=== PATIENT | female | born 1935 | race Caucasian/White ===

== ENCOUNTER 2016-12-27 12:02 | Inpatient (IN) ==
[2016-12-27 13:31] LABS: Basophils # (Auto) 0.1 K/mcL (0.0-0.3); Basophils % (Auto) 0.4 % (0.0-2.0); Eosinophils # (Auto) 0.3 K/mcL (0.0-0.7); Eosinophils % (Auto) 1.7 % (0.0-7.0); Granulocytes % (Auto) 75.9 % (38.0-78.0); Lymphocytes # (Auto) 2.3 K/mcL (1.5-4.8); Lymphocytes % (Auto) 12.6 % (15.5-49.0); Mean Cell Volume 103.5 fL (80.0-100.0); Mean Corpuscular HGB Conc 33.7 g/dL (31.0-36.0); Mean Corpuscular Hemoglobin 34.8 pg (26.0-34.0); Monocytes # (Auto) 1.7 K/mcL (0.1-0.9); Monocytes % (Auto) 9.4 % (1.0-12.0); Platelet Count 433 K/mcL (140-440); Red Cell Distribution Width 13.4 % (11.5-14.5)
--- NOTE | 2016-12-27 13:35 | XRay Report ---
CLINICAL INFORMATION: Cough and fatigue COMPARISON: 01/10/2013 FINDINGS: The heart is minimally enlarged, but unchanged. Mediastinum and pulmonary vessels are normal. Moderate sized infiltrate has developed in the posterior medial right lower lobe. Small right pleural effusion. IMPRESSION: Moderate sized bilateral infiltrative small right pleural effusion - likely pneumonia Interpreted and Authenticated by: Simba Graham 12/27/16
[2016-12-27 14:08] LABS: ALT/SGPT 15 U/l (0-40); Albumin 3.7 gm/dL (3.2-5.2); Alkaline Phosphatase 68 U/L (39-117); Blood Urea Nitrogen 14 mg/dl (8-23)
[2016-12-27] MEDS ORDERED: cefTRIAXone 1 GM in DEXTROSE 5% IN WATER 50 ML IV ONE (14:08)
[2016-12-27] MEDS ORDERED: VANCOMYCIN 1,000 MG in 0.9 % SODIUM CHLORIDE 250 ML IV ONE (14:08)
--- NOTE | 2016-12-27 15:22 | Emergency Department Note ---
Dizziness HPI - General Chief Complaint: Arrhythmia/Palpitations Stated Complaint: cold symptoms Time Seen by Provider: 12/27/16 12:12 Source: patient Mode of arrival: ambulatory Limitations: no limitations - History of Present Illness HPI Narrative: 81-year-old female presents with persistent cough for 2 weeks. She was seen here 8 days ago and put on a Z-Keyon for bronchitis. States she did not get any better so after about 5 days she saw her primary care provider who put her on another Z-Keyon. She states states she took the first dose about 500 mg and then did not take anymore because she started having palpitations. Her states that he's retired provider and red on the instructions that that medication can have that side effect and so they stopped it. She continues to have weakness and fatigue. Her states "she is just not". She denies chest pain but does get short of breath especially with exertion. She has a lot of fatigue and spend a lot of time in bed. Feels weak and much more tired than normal. Has thick green sputum with a productive cough. No sore throat. Positive body aches but unknown fever. No chills. No nausea vomiting or diarrhea. Patient is very tearful. She states she is upset but will not say why. She denies being scared. She states she is here to get an antibiotic and go home but her states something else is going on and she needs further evaluation. - Related Data Home Medications Medication Instructions Recorded Confirmed Albuterol Sulfate [Proair Hfa] 8.5 gm IH BID 12/19/16 12/27/16 Fexofenadine [Sally] 180 mg PO DAILY 12/19/16 12/27/16 Lisinopril [Zestril] 20 mg PO DAILY 12/19/16 12/27/16 Previous Rx's Medication Instructions Recorded beclomethasone dipropionate 80 80 mcg INHALATION BID #8.7 g 07/29/15 mcg/actuation aerosol inhaler pneumococcal 13-siddharth conj 0.5 ml IM ONCE #0.5 ml 08/25/15 vaccine-dip crm (PF) 0.5 mL IM syringe Azithromycin 250 mg PO DAILY #6 tablet 12/19/16 Benzonatate [Tessalon Perle] 100 mg PO TID PRN #20 capsule 12/19/16 Allergies Allergy/AdvReac Type Severity Reaction Status Date / Time No Known Drug Allergies Allergy Verified 12/27/16 12:07 Review of Systems All systems ED: reviewed and negative except as stated. Past Medical History - Past Medical History Medical history: Reports: asthma, hypertension Surgical history ED: Reports: non-contributory Psychiatric history: Reports: no psych history [employer] history: Reports: non-contributory - Social History smoking status: Never smoker Alcohol use: Reports: None Drug use: Reports: none Physical Exam - General Limitations: no limitations General appearance: alert, in no apparent distress - Head Head exam: atraumatic, normocephalic, normal inspection - Eye Eye exam: Present: normal appearance, PERRL. Absent: conjunctival injection, nystagmus, periorbital swelling, periorbital tenderness - ENT ENT exam: normal exam, normal oropharynx, mucous membranes moist, TM's normal bilaterally, normal external ear exam - Neck Neck exam: Present: normal inspection, full ROM, trachea midline. Absent: tenderness, lymphadenopathy - Chest Chest inspection: Present: normal inspection, symmetric chest wall rise - Respiratory Respiratory exam: Present: other (Lungs sounds diminished in bases bilaterally and right with crackles.). Absent: respiratory distress, wheezes, stridor, accessory muscle use - Cardiovascular Cardiovascular exam: Present: regular rate, normal heart sounds - Abdominal Exam Abdominal exam: Present: soft, normal bowel sounds. Absent: distention, tenderness, guarding - Extremities Exam Extremities exam: Present: normal inspection, normal capillary refill. Absent: pedal edema - Neurological Exam Neurological exam: Present: alert, other (Forgetful at times) - Psychiatric Psychiatric exam: Present: other (Very tearful) - Skin Skin exam: Present: warm, dry, intact, normal color. Absent: rash, cyanosis, diaphoresis, erythema Course Course Narrative: Vital signs have been stable throughout her visit here. feels like she is too weak to go home. She also has bilateral infiltrate on x-ray as well as a right pleural effusion. Also has urinary tract infection. Patient is in need of IV antibiotics. Did speak with Dr. Hernandez- hospitalist who agrees to see the patient and assume care Vital Signs Temperature 96.6 F L 12/27/16 12:02 Pulse Rate 82 12/27/16 12:02 Respiratory Rate 16 12/27/16 12:02 Blood Pressure 150/79 12/27/16 12:02 Pulse Oximetry (%) 94 12/27/16 12:02 Temperature 96.6 F L 12/27/16 12:02 Pulse Rate 66 12/27/16 14:19 Respiratory Rate 20 12/27/16 14:19 Blood Pressure 166/66 12/27/16 14:19 Pulse Oximetry (%) 91 12/27/16 14:19 Dizziness - Lab Data Lab results reviewed: Yes I reviewed the patient's lab results. Result diagrams: 12/27/16 12:45 12/27/16 12:45 Lab Results 12/27/16 12/27/16 12/27/16 Range/Units 12:45 12:45 12:45 WBC 18.4 H (4.5-11.0) K/mcL RBC 3.60 L (4.00-5.20) M/mcL Hgb 12.5 (12.0-15.0) g/dL Hct 37.3 (36.0-48.0) % MCV 103.5 H (80.0-100.0) fL MCH 34.8 H (26.0-34.0) pg MCHC 33.7 (31.0-36.0) g/dL RDW 13.4 (11.5-14.5) % Plt Count 433 (140-440) K/mcL MPV 8.1 (7.4-10.4) fL Gran % 75.9 (38.0-78.0) % Lymph % (Auto) 12.6 L (15.5-49.0) % Hart % (Auto) 9.4 (1.0-12.0) % Eos % (Auto) 1.7 (0.0-7.0) % Baso % (Auto) 0.4 (0.0-2.0) % Gran # 14.0 H (1.8-8.0) K/mcL Lymph # 2.3 (1.5-4.8) K/mcL Hart # 1.7 H (0.1-0.9) K/mcL Eos # 0.3 (0.0-0.7) K/mcL Baso # 0.1 (0.0-0.3) K/mcL VBG Lactic Acid (0.5-2.2) mmol/L Sodium 131 L (133-145) mmol/L Potassium 3.5 (3.3-5.1) mmol/L Chloride 92 L (96-108) mmol/L Carbon Dioxide 23 (22-30) mmol/L Anion Gap 16.0 (8-16) BUN 14 (8-23) mg/dl Creatinine 0.8 (0.6-1.1) mg/dl GFR Calculation 69 Glucose 123 H (70-105) mg/dL Calcium 9.0 (8.6-10.4) mg/dl Total Bilirubin 0.7 (0.0-1.0) mg/dL AST 14 (0-37) U/l ALT 15 (0-40) U/l Alkaline Phosphatase 68 (39-117) U/L Troponin T < 0.01 (0-0.03) ng/ml Total Protein 7.3 (5.9-8.4) gm/dL Albumin 3.7 (3.2-5.2) gm/dL Globulin 3.6 (2.2-3.7) gm/dL Albumin/Globulin Ratio 1.0 (1.0-2.3) 12/27/16 Range/Units 14:23 WBC (4.5-11.0) K/mcL RBC (4.00-5.20) M/mcL Hgb (12.0-15.0) g/dL Hct (36.0-48.0) % MCV (80.0-100.0) fL MCH (26.0-34.0) pg MCHC (31.0-36.0) g/dL RDW (11.5-14.5) % Plt Count (140-440) K/mcL MPV (7.4-10.4) fL Gran % (38.0-78.0) % Lymph % (Auto) (15.5-49.0) % Hart % (Auto) (1.0-12.0) % Eos % (Auto) (0.0-7.0) % Baso % (Auto) (0.0-2.0) % Gran # (1.8-8.0) K/mcL Lymph # (1.5-4.8) K/mcL Hart # (0.1-0.9) K/mcL Eos # (0.0-0.7) K/mcL Baso # (0.0-0.3) K/mcL VBG Lactic Acid 1.0 (0.5-2.2) mmol/L Sodium (133-145) mmol/L Potassium (3.3-5.1) mmol/L Chloride (96-108) mmol/L Carbon Dioxide (22-30) mmol/L Anion Gap (8-16) BUN (8-23) mg/dl Creatinine (0.6-1.1) mg/dl GFR Calculation Glucose (70-105) mg/dL Calcium (8.6-10.4) mg/dl Total Bilirubin (0.0-1.0) mg/dL AST (0-37) U/l ALT (0-40) U/l Alkaline Phosphatase (39-117) U/L Troponin T (0-0.03) ng/ml Total Protein (5.9-8.4) gm/dL Albumin (3.2-5.2) gm/dL Globulin (2.2-3.7) gm/dL Albumin/Globulin Ratio (1.0-2.3) - Radiology Data Radiology results reviewed: Yes I reviewed the patient's radiology results. - EKG Data EKG attestation: Yes I reviewed and interpreted this EKG. EKG shows normal: sinus rhythm Rate: normal Rhythm: NSR When compared to previous EKG there are: no significant changes Interpretation: no acute changes Disposition Clinical Impression: Pneumonia, Urinary tract infection Disposition: Still a Patient Condition: Good
[2016-12-27] MEDS ORDERED: POTASSIUM CHLORIDE 20 MEQ PACKET PO PRN (15:35)
[2016-12-27] MEDS ORDERED: MAGNESIUM SULFATE 2 GM/50 ML BAG IV PRN (15:35)
[2016-12-27] MEDS ORDERED: BENZONATATE 100 MG CAPSULE PO PRN (15:35)
[2016-12-27] MEDS ORDERED: ACETAMINOPHEN 1,000 MG/100 ML BOTTLE IV PRN (15:35)
[2016-12-27] MEDS ORDERED: ONDANSETRON 4 MG/2 ML VIAL IV PRN (15:35)
[2016-12-27] MEDS ORDERED: LEVOFLOXACIN 750 MG/150 ML BAG IV SCH (16:00)
[2016-12-27] MEDS: 0.9 % SODIUM CHLORIDE 1,000 ML IV SCH (16:20)
[2016-12-27 16:35] LABS: Strep Pneumoniae Antigen - UR NEGATIVE (NEGATIVE)
[2016-12-27 16:37] LABS: Appearance,Urine CLEAR; Bacteria,Urine 0 /hpf (0); Bilirubin,Urine NEG (NEG); Color,Urine YELLOW; Glucose,Urine (UA) NEGATIVE (NEG); Leukocyte Esterase,Urine 75 /uL (NEG); Mucus,Urine FEW /hpf (0); Nitrate,Urine NEG (NEG); Protein,Urine NEG (NEG); Specific Gravity,Urine 1.018 (1.000-1.035); Urine Blood NEG mg/dL (<0.03); Urine RBC 1 /hpf (0-1); Urine Squamous Epithelial Cell 1 /hpf (0-4); Urine Transitional Epi Cells < 1 /hpf (0-2); Urine WBC 8 /hpf (0-4)
[2016-12-27] MEDS: PIPERACILLIN SODIUM/TAZOBACTAM 3.375 GM in DEXTROSE 5% IN WATER 50 ML IV SCH (16:50)
--- NOTE | 2016-12-27 16:52 | History and Physical Report ---
DATE OF ADMISSION: 12/27/2016 REASON FOR ADMISSION: Worsening shortness of breath, fever, cough, weakness. HISTORY OF CHIEF COMPLAINT: The patient is an 81-year-old who comes to [facility] Emergency Room with her with above symptoms that have progressed over the last couple of weeks. In the process, the patient has been seen by primary care physician and was started on Z-Keyon. However, patient had only minimal improvement and subsequently started experiencing palpitation. Over the ensuing couple of days, the patient has gotten increasingly short of breath and significant effort intolerance. She endorses to copious amount of yellow-green productive sputum. She denies recent sick contacts. She is up-to-date on pneumonia and flu vaccine. She endorses to low grade fever, but denies shaking chills, drenching sweats, headache, photophobia, skin rash, joint pain. She endorses significant fatigue, lethargy, weakness and loss of appetite. She endorses losing 10 pounds over the last few weeks. Initial workup in the ER was significant for bibasilar infiltrate along with right-sided effusion. The patient was started on antibiotic coverage. Hospitalist Service was consulted. At the time of examination, the patient is alert and oriented. She is able to provide answers to most of the questions and able to talk in full sentences and endorse to above history. REVIEW OF SYSTEMS: Ten-point review of system was performed and is negative except the ones discussed above. PAST MEDICAL HISTORY: 1. History of hypertension. 2. Seasonal allergy disorder. 3. Reactive airway disease. 4. 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 CURRENT MEDICATIONS: 1. Albuterol inhaled b.i.d. 2. Fexofenadine 180 mg daily. 3. Lisinopril 20 mg daily. ALLERGIES: None significant. SOCIAL HISTORY: The patient lives in [place] along with her . No history of smoking, very occasional alcohol use. She is retired. She sees Beverley Stauffer NP, primary care physician at [facility]. FAMILY HISTORY: Significant for father who at age 80 of CVA. PHYSICAL EXAMINATION: GENERAL: The patient is in minimal discomfort, nonlabored breathing. BMI 28.3, height 5 feet 5 inches. VITAL SIGNS: Blood pressure 104/81, respiration rate 20, temperature 97.6, pulse 75, sats 92% on room air. HEENT: Pupils symmetric. Oral cavity is dry. No ear or nose discharge. Head is normocephalic and atraumatic. NECK: No lymphadenopathy. HEART: S1, S2, regular rhythm. No murmur appreciated. CHEST: Clear to auscultation bilaterally. ABDOMEN: Soft and nontender. LOWER EXTREMITIES: No cyanosis or clubbing. No joint swelling. SKIN: No suspicious lesions. PSYCH: Minimal anxiety, but no agitation, hallucination or delusion. NEURO: Nonfocal. LABS AND IMAGING: White count 18,000, hemoglobin 12.5, neutrophils 76%. ESR pending. Lactic acid 1.0. Sodium 131, potassium 3.5, creatinine 0.8, BUN 14. Troponin negative. Procalcitonin pending. X-ray chest: Bibasilar infiltrates suggestive of pneumonia along with right pleural effusion. EKG: Sinus rhythm. ASSESSMENT AND PLAN: An 81-year-old admitted with severe sepsis, bilateral pneumonia. 1. Sepsis per SOFA criteria. Continue broad antibiotic coverage, management per guidelines. 2. Dyspnea secondary to bibasilar pneumonia. Continue supplemental oxygen. 3. Bibasilar pneumonia. Continue antibiotic coverage. Rule out underlying CHF with echocardiogram. 4. Pleural effusion. If persistent leukocytosis, perform thoracentesis to rule out empyema. 6. Other prior medical issues, including: a. History of hypertension. Continue lisinopril. b. Reactive airway disease. Continue albuterol/beclomethasone. PLAN FOR TODAY: 1. Admit as inpatient. 2. Antibiotic coverage. 3. Thoracentesis if persistent leukocytosis. 4. Echocardiogram. 5. Preexisting medical condition management as above. AA:analisa Job ID: [id number] Doc ID: [id number] Eugenio Stauffer NP
[2016-12-27] MEDS: ACETAMINOPHEN 325 MG TABLET PO PRN (20:20)
[2016-12-27] MEDS: DOCUSATE SODIUM 100 MG CAPSULE PO SCH (20:21)
[2016-12-27] MEDS: HEPARIN 5,000 UNIT/ML VIAL SQ SCH (20:21)
[2016-12-27] MEDS: BECLOMETHASONE DIPROPIONATE 80MCG INHALER INH SCH (20:21)
[2016-12-27] MEDS: ALBUTEROL SULFATE 1 PUFF INHALER IH SCH ×2 (20:21→23:26)
[2016-12-27] MEDS ORDERED: traZODone HCL 50 MG TABLET PO PRN (21:00)
[2016-12-27] MEDS ORDERED: SENNOSIDES/DOCUSATE SODIUM 1 TAB TABLET PO SCH (21:00)
[2016-12-27] MEDS: 0.9 % SODIUM CHLORIDE 10 ML SYRINGE IV SCH (22:00)
[2016-12-28 05:39] LABS: Mean Cell Volume 105.4 fL (80.0-100.0); Mean Corpuscular HGB Conc 34.6 g/dL (31.0-36.0); Mean Corpuscular Hemoglobin 36.5 pg (26.0-34.0); Platelet Count 381 K/mcL (140-440); RBC 3.14 M/mcL (4.00-5.20); Red Cell Distribution Width 13.2 % (11.5-14.5)
[2016-12-28] MEDS: PIPERACILLIN SODIUM/TAZOBACTAM 3.375 GM in DEXTROSE 5% IN WATER 50 ML IV SCH ×4 (06:02→18:15)
[2016-12-28] MEDS: 0.9 % SODIUM CHLORIDE 10 ML SYRINGE IV SCH ×2 (06:03→20:36)
[2016-12-28 06:27] LABS: ALT/SGPT 17 U/l (0-40); Albumin 3.1 gm/dL (3.2-5.2); Albumin/Globulin Ratio 0.9 (1.0-2.3); Alkaline Phosphatase 71 U/L (39-117); Bilirubin,Direct < 0.2 mg/dL (0.0-0.3); Blood Urea Nitrogen 8 mg/dl (8-23); Gamma Glutamyl Transpeptidase 12 U/L (5-36); Magnesium 2.1 mg/dL (1.6-2.5); Uric Acid 2.5 mg/dL (2.5-8.0)
[2016-12-28 06:49] LABS: Basophils % (Manual) 1 % (0-2); Eosinophils % (Manual) 1 % (0-7); Lymphocytes % 19 % (15-49); Macrocytosis 2+ (NONE SEEN); Metamyelocytes % 1 % (0-0); Monocytes % (Manual) 7 % (1-9); Platelet Estimate NORMAL (NORMAL); RBC Morphology ABNORM (NORMAL); Segmented Neutrophils % 70 % (38-78)
[2016-12-28] MEDS ORDERED: PANTOPRAZOLE 40 MG TABLET PO SCH (07:30)
[2016-12-28] MEDS: DOCUSATE SODIUM 100 MG CAPSULE PO SCH ×3 (08:50→21:00)
[2016-12-28] MEDS: HEPARIN 5,000 UNIT/ML VIAL SQ SCH ×3 (08:50→20:59)
[2016-12-28] MEDS: BECLOMETHASONE DIPROPIONATE 80MCG INHALER INH SCH ×2 (08:50→20:36)
[2016-12-28] MEDS: ALBUTEROL SULFATE 1 PUFF INHALER IH SCH ×2 (08:51→20:35)
[2016-12-28] MEDS ORDERED: LISINOPRIL 20 MG TABLET PO SCH (09:00)
[2016-12-28] MEDS ORDERED: FEXOFENADINE 180 MG TABLET PO SCH (09:00)
[2016-12-28] MEDS ORDERED: amLODIPine 10 MG TABLET PO SCH (09:00)
--- NOTE | 2016-12-28 09:22 | Echocardiogram Report ---
ECHOCARDIOGRAM: 2-D and M-mode echocardiography with cardiac Doppler and color flow imaging were performed with a [employer]. Indication is dyspnea/possible heart failure. A diagnostic M-mode tracing of the LV could not be obtained. The RA appeared mildly enlarged and the RV appeared borderline enlarged. The LA and LV cavity size appeared normal as did LV wall thickness and systolic performance. Estimated ejection fraction is 65%. Aortic root diameter appeared normal. The aortic valve appeared trileaflet and normal. There was no evidence for aortic stenosis or aortic regurgitation by Doppler interrogation. The mitral leaflets displayed light focal calcification. Mitral annular calcification was also present. Valve motion appeared slightly stiff. Doppler interrogation of the LV inflow disclosed mildly prolonged early diastolic deceleration time and a mild ''a'' wave dominance consistent with age. No more than trivial mitral regurgitation was noted. Pulmonary venous interrogation disclosed normal ''s'' wave dominance. The pulmonic valve was not well visualized. Pulmonary artery acceleration time was difficult to measure. There was no evidence for pulmonic stenosis or pulmonic regurgitation. Tricuspid regurgitation, probably moderate (2+), was demonstrated. No intracardiac shunting was appreciated. There was no evidence for pericardial effusion. The IVC was of normal diameter and showed normal respiratory variation. Calculated estimate of PA systolic pressure is minimally elevated at 35 mmHg, probably normal at age 81. Sinus rhythm, rate 76, was present. CONCLUSION:Light focal calcification, mitral annulus and leaflets. Borderline to mild right heart enlargement. (See accompanying M-mode and Doppler reports for quantitation.) ECHOCARDIOGRAPHY M-MODE CALCULATIONS: HT: 65'' WT: 170 BSA: 1.85 m2 NORMALS AORTA: AORTIC ROOT 3.2 2.0-3.7 cm LEFT ATRIUM 3.5 1.9-4.0 cm MITRAL VALVE: EXCURSION 2.1 1.9-2.7 cm EPSS 0.4 <0.5 cm LT VENTRICLE: LVID (ED) -- 3.5-5.7 cm LVID (ES) -- SEPTAL THICKNESS -- 0.6-1.1 cm SEPTAL EXCURSION -- 0.3-0.8 cm LVPW THICKNESS -- 0.6-1.1 cm LVPW EXCURSION -- 0.9-1.4 cm MINOR AXIS FS -- 25%-40% RT VENTRICLE: RVID (ED) -- 0.9-2.6 cm(up to 3cm if LLD) QUALITATIVE DOPPLER FLOW STUDIES MITRAL VALVE MR, probably trivial AORTIC VALVE -- TRICUSPID VALVE TR, probably moderate (2+) PULMONIC VALVE AK, probably trivial QUANTITATIVE DOPPLER FLOW STUDIES SAMPLE SITES VELOCITIES PEAK PRESSURE VALVE AREA and/or VALVE WINDOW (PEAK,M/SEC) DROP (GRADIENT) PRESSURE HALF-TIME MV (Diastole) 1.0 1.1 -- -- MV (Systole) 3.5 -- -- AO (Diastole) -- -- -- AO (Systole) 1.5 -- -- TV (Systole) 2.6 -- -- PV (Systole) 0.7 -- -- PV (Diastole) -- LWG:j carlos Job ID: [id number] Doc ID: [id number] Huan Heart MD
[2016-12-28] MEDS: ACETAMINOPHEN 325 MG TABLET PO PRN (13:32)
[2016-12-28] MEDS: 0.9 % SODIUM CHLORIDE 1,000 ML IV SCH ×2 (14:59→18:13)
--- NOTE | 2016-12-28 16:25 | Internal Med Progress Note ---
Medical - PN: Subj Patient information: Note initiated : 12/28/16 at 4:21 pm Service Date, if different from initiated Date: [] Patient: Krystyna Bolaños 81 y/o F admitted on 12/27/16 for Cold Symptoms/ Severe Sepsis, Bilateral Pneumonia. Chief Complaint: [] Interval history: 12/27- 81-year-old female admitted with failed outpatient treatment for pneumonia with increasing dyspnea and effort intolerance. Bibasal infiltrates on chest imaging along with pleural effusion. Started on broad antibiotic coverage. Echocardiogram ordered. Admitted in telemetry. White count 18.4. Continue hemodynamic monitoring. hypoxic on 2 L oxygen 12/28- no overnight events. Patient clinically improving and doing well. White count down to 13.4. No telemetry events. Transfer to medical floor. Continue antibiotic coverage. Restart on home medications. On 1- 2 L oxygen. echocardiogram normal ejection fraction with no significant findings. - Constitutional Vitals: Vital Signs Temp Pulse Resp BP Pulse Ox 97.7 F 64 20 125/77 92 12/28/16 11:50 12/28/16 03:52 12/28/16 11:50 12/28/16 11:50 12/28/16 11:50 Period Temp Pulse Resp BP Sys/Jama Pulse Ox Last 24 Hr 97.6 F-98.8 F 56-64 16-20 125-140/64-77 92-96 Intake and Output 12/28/16 12/28/16 12/28/16 05:59 13:59 21:59 Intake Total 650 / 650 50 / 50 1167 / 1167 Output Total 1550 / 1550 Balance -900 / -900 / 50 1167 / 1167 Weight 168 lb Patient Weight 12/29/16 05:59 Weight 168 lb Intake & Output: Intake & Output 12/28/16 12/28/16 12/28/16 05:59 13:59 21:59 Intake Total 650 / 650 50 / 50 1167 / 1167 Output Total 1550 / 1550 Balance -900 / -900 50 / 50 1167 / 1167 Weight 168 lb Intake: IV 50 / 50 50 / 50 967 / 967 Sodium Chloride 0.9% 1, 967 / 967 000 ml @ 50 mls/hr IV . Q20H [facility] Rx#:[id number] Zosyn 3.375 gm In 50 / 50 50 / 50 Dextrose 5% in Water 50 ml @ 100 mls/hr IV Q6 [facility] Rx#:[id number] Oral 600 / 600 200 / 200 Output: Void Amount 1550 / 1550 Other: # Voids 1 General appearance: cooperative, no acute distress Exam: Alert and oriented nonlabored breathing On 2 L oxygen nondistended abdomen no lymphedema or pallor No anxiety Medical - PN: Obj Da - Labs CBC & Chem 7: 12/28/16 04:55 12/28/16 04:55 Labs: Abnormal Lab Results 12/28/16 12/28/16 04:55 04:55 WBC 13.8 H RBC 3.14 L Hgb 11.5 L Hct 33.2 L MCV 105.4 H MCH 36.5 H Metamyelocytes % 1 H RBC Morphology Abnorm A Macrocytosis 2+ A Albumin 3.1 L Albumin/Globulin Ratio 0.9 L Meds: Medications Acetaminophen (Tylenol) 650 mg PO Q4-6HP PRN PRN Reason: PAIN/FEVER > 101 Last Admin: 12/28/16 13:32 Dose: 650 mg Albuterol Sulfate (Ventolin) 0 puff IH BID [facility] Last Admin: 12/28/16 08:51 Dose: Not Given Amlodipine Besylate (Norvasc) 10 mg PO DAILY [facility] Last Admin: 12/28/16 08:50 Dose: 10 mg Benzonatate (Tessalon) 100 mg PO TIDP PRN PRN Reason: Cough Docusate Sodium (Colace) 100 mg PO BID [facility] Last Admin: 12/28/16 08:50 Dose: Not Given Fexofenadine HCl (Sally) 180 mg PO DAILY [facility] Last Admin: 12/28/16 08:50 Dose: 180 mg Heparin Sodium (Porcine) (Heparin) 5,000 unit SQ Q12 [facility] Last Admin: 12/28/16 08:50 Dose: Not Given Levofloxacin (Levaquin) 750 mg in 150 mls @ 100 mls/hr IV Q48H [facility] Last Infusion: 12/27/16 19:22 Dose: Infused Magnesium Sulfate (Magnesium Sulfate) 2 gm in 50 mls @ 50 mls/hr IV UD PRN PRN Reason: MG = or < 1.7 Sodium Chloride (Sodium Chloride 0.9%) 1,000 mls @ 50 mls/hr IV .Q20H [facility] Stop: 12/30/16 03:34 Last Admin: 12/28/16 14:59 Dose: 50 mls/hr Acetaminophen (Ofirmev) 1,000 mg in 100 mls @ 200 mls/hr IV Q6HP PRN PRN Reason: PAIN/FEVER > 101 Piperacillin Sod/Tazobactam (Sod 3.375 gm/ Dextrose) 50 mls @ 100 mls/hr IV Q6 [facility] Last Admin: 12/28/16 13:32 Dose: 100 mls/hr Lisinopril (Zestril) 20 mg PO DAILY [facility] Last Admin: 12/28/16 08:50 Dose: 20 mg Ondansetron HCl (Zofran) 4 mg IV Q4-6HP PRN PRN Reason: Nausea And Vomiting Pantoprazole Sodium (Protonix) 40 mg PO QAMAC [facility] Last Admin: 12/28/16 08:50 Dose: Not Given Beclomethasone Dipropionate 80mcg Inhaler 1 dose INH BID [facility] Last Admin: 12/28/16 08:50 Dose: 1 dose Potassium Chloride (Klor-Con) 40 meq PO DAILYP PRN PRN Reason: K+ < 3.5 Senna/Docusate Sodium (Senna Plus Tablet) 1 tab PO HS [facility] Last Admin: 12/27/16 20:22 Dose: Not Given Sodium Chloride (Saline Flush) 10 ml IV Q8 [facility] Last Admin: 12/28/16 06:03 Dose: Not Given Trazodone HCl (Desyrel) 50 mg PO HSP PRN PRN Reason: Insomnia Medical - PN: A/P - Time Spent With Patient Total time spent is greater than 50% in coordination of care (as documented) at patient's floor/unit and/or counseling patient: 25 - 35 minutes (1) Severe sepsis Status: Acute Assessment and plan: * Severe sepsis secondary to bilateral pneumonia. Clinically improving white count down from 18.4-13.4. Cultures negative so far * Bilateral pneumonia. Likely community acquired. Failed outpatient treatment. Continue antibiotic coverage. Inpatient management. continue pulmonary toilet /Bronchodilators * Significant dyspnea secondary to above. Noncardiac with negative echocardiogram * Hypertension on lisinopril/amlodipine * DVT prophylaxis on heparin Plan * broad antibiotic coverage * physical therapy * Possible discharge in 24-48 hours * transfer to medical floor Current Visit: Yes Medical - PN: Qual - VTE Deep Vein Thrombosis/Pulmonary Embolism Present on Admission: No
[2016-12-28] MEDS ORDERED: ACETAMINOPHEN 1,000 MG/100 ML BOTTLE IV PRN (18:08)
[2016-12-28] MEDS ORDERED: BENZONATATE 100 MG CAPSULE PO PRN (18:08)
[2016-12-28] MEDS ORDERED: MAGNESIUM SULFATE 2 GM/50 ML BAG IV PRN (18:08)
[2016-12-28] MEDS ORDERED: POTASSIUM CHLORIDE 20 MEQ PACKET PO PRN (18:08)
[2016-12-28] MEDS ORDERED: ONDANSETRON 4 MG/2 ML VIAL IV PRN (18:08)
[2016-12-28] MEDS ORDERED: traZODone HCL 50 MG TABLET PO PRN (18:08)
[2016-12-28] MEDS: SENNOSIDES/DOCUSATE SODIUM 1 TAB TABLET PO SCH ×2 (20:34→21:01)
[2016-12-29] MEDS: PIPERACILLIN SODIUM/TAZOBACTAM 3.375 GM in DEXTROSE 5% IN WATER 50 ML IV SCH ×5 (00:17→23:58)
[2016-12-29] MEDS: 0.9 % SODIUM CHLORIDE 10 ML SYRINGE IV SCH ×3 (05:10→20:36)
[2016-12-29 05:17] LABS: Mean Cell Volume 105.4 fL (80.0-100.0); Mean Corpuscular HGB Conc 33.9 g/dL (31.0-36.0); Mean Corpuscular Hemoglobin 35.7 pg (26.0-34.0); Platelet Count 399 K/mcL (140-440); RBC 3.12 M/mcL (4.00-5.20); Red Cell Distribution Width 13.1 % (11.5-14.5)
[2016-12-29 05:46] LABS: ALT/SGPT 16 U/l (0-40); Albumin 3.2 gm/dL (3.2-5.2); Alkaline Phosphatase 61 U/L (39-117); Bilirubin,Direct < 0.2 mg/dL (0.0-0.3); Blood Urea Nitrogen 8 mg/dl (8-23); Gamma Glutamyl Transpeptidase 16 U/L (5-36); Magnesium 2.1 mg/dL (1.6-2.5); Uric Acid 1.9 mg/dL (2.5-8.0)
[2016-12-29 06:49] LABS: Band Neutrophils % 1 % (0-10); Basophils % (Manual) 1 % (0-2); Lymphocytes % 23 % (15-49); Macrocytosis 2+ (NONE SEEN); Monocytes % (Manual) 7 % (1-9); Platelet Estimate NORMAL (NORMAL); RBC Morphology ABNORM (NORMAL); Segmented Neutrophils % 68 % (38-78)
[2016-12-29] MEDS: PANTOPRAZOLE 40 MG TABLET PO SCH (07:13)
--- NOTE | 2016-12-29 07:55 | XRay Report ---
CLINICAL INFORMATION: Follow right lower lobe pneumonia COMPARISON: 12/27/2016. FINDINGS: The heart is minimally enlarged, but unchanged. Mediastinum and pulmonary vessels are normal. Moderate sized infiltrate in the posterior medial right lower lobe has worsened slightly. A new small infiltrate or atelectasis is developing in the left base. Small right pleural effusion. IMPRESSION: Moderate infiltrate, likely pneumonia, worsening in the posterior medial right lower lobe with small effusion. Small infiltrate or atelectasis now developing in the left base Interpreted and Authenticated by: Simba Graham 12/29/16
[2016-12-29] MEDS: LISINOPRIL 20 MG TABLET PO SCH (08:46)
[2016-12-29] MEDS: HEPARIN 5,000 UNIT/ML VIAL SQ SCH ×2 (08:46→20:35)
[2016-12-29] MEDS: DOCUSATE SODIUM 100 MG CAPSULE PO SCH ×2 (08:47→20:35)
[2016-12-29] MEDS: FEXOFENADINE 180 MG TABLET PO SCH (08:47)
[2016-12-29] MEDS: amLODIPine 10 MG TABLET PO SCH (08:47)
[2016-12-29] MEDS: BECLOMETHASONE DIPROPIONATE 80MCG INHALER INH SCH ×3 (08:50→20:35)
[2016-12-29] MEDS: ALBUTEROL SULFATE 1 PUFF INHALER IH SCH ×2 (08:50→20:36)
[2016-12-29] MEDS ORDERED: LEVOFLOXACIN 750 MG/150 ML BAG IV SCH (09:00)
--- NOTE | 2016-12-29 10:24 | Internal Med Progress Note ---
Medical - PN: Subj Patient information: Note initiated : 12/29/16 at 10:18 am Service Date, if different from initiated Date: [] Patient: Krystyna Bolaños 81 y/o F admitted on 12/27/16 for Cold Symptoms/ Severe Sepsis, Bilateral Pneumonia. Chief Complaint: [] Interval history: 12/27- 81-year-old female admitted with failed outpatient treatment for pneumonia with increasing dyspnea and effort intolerance. Bibasal infiltrates on chest imaging along with pleural effusion. Started on broad antibiotic coverage. Echocardiogram ordered. Admitted in telemetry. White count 18.4. Continue hemodynamic monitoring. hypoxic on 2 L oxygen 12/28- no overnight events. Patient clinically improving and doing well. White count down to 13.4. No telemetry events. Transfer to medical floor. Continue antibiotic coverage. Restart on home medications. On 1- 2 L oxygen. echocardiogram normal ejection fraction with no significant findings. 12/29- patient feeling remarkably better despite worsening chest imaging/ leukocytosis. No fever chills nausea vomiting however white count up from 13.8- 14.8. Negative culture so far including strep pneumo and mycoplasma serology. continue broad antibiotic coverage. Pulmonary toilet. offered short-term SNF however patient refuses and would like to go home on discharge. Discussed clinical findings including labs and imaging - Constitutional Vitals: Vital Signs Temp Pulse Resp BP Pulse Ox 98.0 F 88 16 136/79 93 12/29/16 07:11 12/29/16 07:11 12/29/16 07:11 12/29/16 07:11 12/28/16 19:54 Period Temp Pulse Resp BP Sys/Jama Pulse Ox Last 24 Hr 97.7 F-98.0 F 88 16-20 124-142/62-79 92-93 Intake and Output 12/28/16 12/29/16 12/29/16 21:59 05:59 13:59 Intake Total 1577 / 1577 50 / 50 50 / 50 Balance 1577 / 1577 50 / 50 50 / 50 Weight 174 lb Intake & Output: Intake & Output 12/28/16 12/29/16 12/29/16 21:59 05:59 13:59 Intake Total 1577 / 1577 50 / 50 50 / 50 Balance 1577 / 1577 50 / 50 50 / 50 Weight 174 lb Intake: IV 1017 / 1017 50 / 50 50 / 50 Sodium Chloride 0.9% 1, 967 / 967 000 ml @ 50 mls/hr IV . Q20H [facility] Rx#:[id number] Zosyn 3.375 gm In 50 / 50 50 / 50 50 / 50 Dextrose 5% in Water 50 ml @ 100 mls/hr IV Q6H [facility] Rx#:[id number] Oral 560 / 560 Other: Meal Dinner Percent of Meal Consumed 100% # Voids 1 General appearance: cooperative, no acute distress Exam: alert oriented nonlabored breathing nondistended abdomen No anxiety Medical - PN: Obj Da - Labs CBC & Chem 7: 12/29/16 03:35 12/29/16 03:35 Labs: Abnormal Lab Results 12/29/16 12/29/16 12/28/16 03:35 03:35 04:55 WBC 14.8 H RBC 3.12 L Hgb 11.1 L Hct 32.9 L MCV 105.4 H MCH 35.7 H Metamyelocytes % RBC Morphology Abnorm A Macrocytosis 2+ A Uric Acid 1.9 L Albumin 3.1 L Albumin/Globulin Ratio 0.9 L 12/28/16 04:55 WBC 13.8 H RBC 3.14 L Hgb 11.5 L Hct 33.2 L MCV 105.4 H MCH 36.5 H Metamyelocytes % 1 H RBC Morphology Abnorm A Macrocytosis 2+ A Uric Acid Albumin Albumin/Globulin Ratio Meds: Medications Acetaminophen (Tylenol) 650 mg PO Q4-6HP PRN PRN Reason: PAIN/FEVER > 101 Albuterol Sulfate (Ventolin) 0 puff IH BID [facility] Last Admin: 12/29/16 08:50 Dose: 1 puff Amlodipine Besylate (Norvasc) 10 mg PO DAILY [facility] Last Admin: 12/29/16 08:47 Dose: 10 mg Benzonatate (Tessalon) 100 mg PO TIDP PRN PRN Reason: Cough Last Admin: 12/29/16 08:46 Dose: 100 mg Docusate Sodium (Colace) 100 mg PO BID [facility] Last Admin: 12/29/16 08:47 Dose: 100 mg Fexofenadine HCl (Sally) 180 mg PO DAILY [facility] Last Admin: 12/29/16 08:47 Dose: 180 mg Heparin Sodium (Porcine) (Heparin) 5,000 unit SQ Q12 [facility] Last Admin: 12/29/16 08:46 Dose: 5,000 unit Levofloxacin (Levaquin) 750 mg in 150 mls @ 100 mls/hr IV Q48H [facility] Last Admin: 12/29/16 10:01 Dose: 100 mls/hr Magnesium Sulfate (Magnesium Sulfate) 2 gm in 50 mls @ 50 mls/hr IV UD PRN PRN Reason: MG = or < 1.7 Sodium Chloride (Sodium Chloride 0.9%) 1,000 mls @ 50 mls/hr IV .Q20H [facility] Stop: 12/30/16 03:34 Last Admin: 12/28/16 18:13 Dose: Not Given Acetaminophen (Ofirmev) 1,000 mg in 100 mls @ 200 mls/hr IV Q6HP PRN PRN Reason: PAIN/FEVER > 101 Piperacillin Sod/Tazobactam (Sod 3.375 gm/ Dextrose) 50 mls @ 100 mls/hr IV Q6H [facility] Last Infusion: 12/29/16 06:24 Dose: Infused Lisinopril (Zestril) 20 mg PO DAILY [facility] Last Admin: 12/29/16 08:46 Dose: 20 mg Ondansetron HCl (Zofran) 4 mg IV Q4-6HP PRN PRN Reason: Nausea And Vomiting Pantoprazole Sodium (Protonix) 40 mg PO QAMAC [facility] Last Admin: 12/29/16 07:13 Dose: 40 mg Beclomethasone Dipropionate 80mcg Inhaler 1 dose INH BID [facility] Last Admin: 12/29/16 08:50 Dose: 1 dose Potassium Chloride (Klor-Con) 40 meq PO DAILYP PRN PRN Reason: K+ < 3.5 Senna/Docusate Sodium (Senna Plus Tablet) 1 tab PO HS [facility] Last Admin: 12/28/16 21:01 Dose: Not Given Sodium Chloride (Saline Flush) 10 ml IV Q8 [facility] Last Admin: 12/29/16 05:10 Dose: Not Given Trazodone HCl (Desyrel) 50 mg PO HSP PRN PRN Reason: Insomnia Medical - PN: A/P - Time Spent With Patient Total time spent is greater than 50% in coordination of care (as documented) at patient's floor/unit and/or counseling patient: 25 - 35 minutes (1) Severe sepsis Status: Acute Assessment and plan: * Bilateral pneumonia clinically worsening on chest imaging. Continue antibiotic coverage. Inpatient management. continue pulmonary toilet/ Bronchodilators * Severe sepsis secondary to bilateral pneumonia. worsening leukocytosis from 13.4-14.8. Continue antibiotic coverage * Dyspnea secondary to above. Noncardiac negative echocardiogram. likely improving * Hypertension on lisinopril/amlodipine * DVT prophylaxis on heparin Plan * continue antibiotic coverage * physical therapy/OT * hold discharge until leukocytosis improves * Current Visit: Yes Medical - PN: Qual - VTE Deep Vein Thrombosis/Pulmonary Embolism Present on Admission: No
[2016-12-29] MEDS: 0.9 % SODIUM CHLORIDE 1,000 ML IV SCH (13:19)
[2016-12-29] MEDS: ACETAMINOPHEN 325 MG TABLET PO PRN (20:32)
[2016-12-29] MEDS: SENNOSIDES/DOCUSATE SODIUM 1 TAB TABLET PO SCH (20:35)
[2016-12-30] MEDS: ACETAMINOPHEN 325 MG TABLET PO PRN (04:26)
[2016-12-30 05:33] LABS: Mean Cell Volume 108.1 fL (80.0-100.0); Mean Corpuscular HGB Conc 34.8 g/dL (31.0-36.0); Mean Corpuscular Hemoglobin 37.6 pg (26.0-34.0); Platelet Count 388 K/mcL (140-440); Red Cell Distribution Width 13.2 % (11.5-14.5)
[2016-12-30] MEDS: PIPERACILLIN SODIUM/TAZOBACTAM 3.375 GM in DEXTROSE 5% IN WATER 50 ML IV SCH ×2 (05:55→12:00)
[2016-12-30] MEDS: 0.9 % SODIUM CHLORIDE 10 ML SYRINGE IV SCH ×3 (05:55→14:06)
[2016-12-30 06:00] LABS: ALT/SGPT 14 U/l (0-40); Albumin 3.1 gm/dL (3.2-5.2); Albumin/Globulin Ratio 0.9 (1.0-2.3); Alkaline Phosphatase 54 U/L (39-117); Bilirubin,Direct < 0.2 mg/dL (0.0-0.3); Blood Urea Nitrogen 10 mg/dl (8-23); Gamma Glutamyl Transpeptidase 13 U/L (5-36); Uric Acid 2.3 mg/dL (2.5-8.0)
[2016-12-30 07:21] LABS: Band Neutrophils % 3 % (0-10); Eosinophils % (Manual) 2 % (0-7); Lymphocytes % 25 % (15-49); Macrocytosis 2+ (NONE SEEN); Monocytes % (Manual) 9 % (1-9); Ovalocytes FEW (NONE SEEN); Platelet Estimate NORMAL (NORMAL); RBC Morphology ABNORMAL (NORMAL); Segmented Neutrophils % 60 % (38-78)
[2016-12-30] MEDS: PANTOPRAZOLE 40 MG TABLET PO SCH ×2 (08:04→08:06)
[2016-12-30] MEDS: DOCUSATE SODIUM 100 MG CAPSULE PO SCH (08:07)
[2016-12-30] MEDS: HEPARIN 5,000 UNIT/ML VIAL SQ SCH (08:10)
--- NOTE | 2016-12-30 09:49 | Discharge Summary ---
Medical - DS: Prov Patient information: Note initiated : 12/30/16 at 9:47 am Service Date, if different from initiated Date: [] Patient: Krystyna Bolaños 81 y/o F admitted on 12/27/16 for Cold Symptoms/ Severe Sepsis, Bilateral Pneumonia. Chief Complaint: [] Date of admission: 12/27/16 15:12 Discharge date: 12/30/16 Primary care physician: [f_Reg Prim Care Provider] Consults: 12/27/16 14:23 Consult to Physician [CONS] Routine Comment: Consulting Provider: Eugenio Hernandez Reason For Exam: Physician to Consult Medical - DS: Meds - Discharge Medications Prescriptions: Amoxicillin/Potassium Clav [Augmentin] 875 mg PO Q12H #10 tablet Levofloxacin [Levaquin] 750 mg PO DAILY #5 tablet Active and Home Medications: Home Medications beclomethasone dipropionate 80 mcg/actuation aerosol inhaler 80 mcg INHALATION BID #8.7 g 07/29/15 [Rx Confirmed 12/27/16 Last Taken Unknown] pneumococcal 13-siddharth conj vaccine-dip crm (PF) 0.5 mL IM syringe 0.5 ml IM ONCE # 0.5 ml 08/25/15 [Rx Confirmed 12/27/16 Last Taken Unknown] Albuterol Sulfate [Proair Hfa] 8.5 gm IH BID 12/19/16 [History Confirmed Last Taken Unknown] Benzonatate [Tessalon Perle] 100 mg PO TID PRN #20 capsule 12/19/16 [Rx Confirmed 12/27/16 Last Taken Unknown] Fexofenadine [Sally] 180 mg PO DAILY 12/19/16 [History Confirmed 12/27/16 Last Taken Unknown] Lisinopril [Zestril] 20 mg PO DAILY 12/19/16 [History Confirmed 12/27/16 Last Taken Unknown] Sally 180 mg PO DAILY 12/27/16 [History Confirmed 12/27/16 Last Taken 08:30] Qvar 80 mcg IH PRN PRN 12/27/16 [History Confirmed 12/27/16 Last Taken Unknown] Vit B Complex 100 No.3/Herbal 1 tab PO DAILY 12/27/16 [History Confirmed Last Taken 12/27/16 08:30] Vitamin E 1,000 mg PO DAILY 12/27/16 [History Confirmed 12/27/16 Last Taken 08:30] amLODIPine 10 mg PO DAILY 12/27/16 [History Confirmed 12/27/16 Last Taken 08:30 10 mg] Amoxicillin/Potassium Clav [Augmentin] 875 mg PO Q12H #10 tablet 12/30/16 [Rx Last Taken Unknown] Levofloxacin [Levaquin] 750 mg PO DAILY #5 tablet 12/30/16 [Rx Last Taken Unknown] Medical - DS: Hosp Hospital course: Discharge diagnosis * Bilateral pneumonia -clinically resolved. Continue additional 5 days oral antibiotics along with inhaled Bronchodilators * Severe sepsis secondary to bilateral pneumonia.clinically resolved. White count at 12.8 * Dyspnea secondary to above. clinically resolved. Noncardiac negative echocardiogram excluding cardiac dyspnea * Hypertension on lisinopril/amlodipine B[facility]EF H[facility]ITAL COURSE Mr. Bolaños is a 81 year old 12/27- 81-year-old female admitted with failed outpatient treatment for pneumonia with increasing dyspnea and effort intolerance. Bibasal infiltrates on chest imaging along with pleural effusion. Started on broad antibiotic coverage. Echocardiogram ordered. Admitted in telemetry. White count 18.4. Continue hemodynamic monitoring. hypoxic on 2 L oxygen 12/28- no overnight events. Patient clinically improving and doing well. White count down to 13.4. No telemetry events. Transfer to medical floor. Continue antibiotic coverage. Restart on home medications. On 1- 2 L oxygen. echocardiogram normal ejection fraction with no significant findings. 12/29- patient feeling remarkably better despite worsening chest imaging/ leukocytosis. No fever chills nausea vomiting however white count up from 13.8- 14.8. Negative culture so far including strep pneumo and mycoplasma serology. continue broad antibiotic coverage. Pulmonary toilet. offered short-term SNF however patient refuses and would like to go home on discharge. Discussed clinical findings including labs and imaging 12/30-patient doing well. no overnight events. No concerns per staff. No fever chills nausea vomiting. Ambulating tolerating diet and feels a lot better. Requesting discharge. Recommend additional 5 days oral antibiotics. white count down to 12.8 from 14.8. detailed discharge instructions as below Discharge diagnosis: . - Time Spent with Patient Total time spent providing and/or coordinating discharge services: Medical - DS: Exam - Constitutional Vitals: Vital Signs Temp Pulse Resp BP Pulse Ox 03/30/17 08:00 97.3 F L 77 18 129/64 93 12/30/16 04:00 98.5 F 58 L 18 125/56 94 12/30/16 00:06 98.3 F 64 16 118/52 92 Intake and Output 12/29/16 12/30/16 12/30/16 21:59 05:59 13:59 Intake Total 1543 / 1543 530 / 530 400 / 400 Balance 1543 / 1543 530 / 530 400 / 400 Intake: IV 1543 / 1543 50 / 50 50 / 50 Sodium Chloride 0.9% 1, 293 / 293 0 / 0 000 ml @ 50 mls/hr IV . Q20H [facility] Rx#:[id number] Zosyn 3.375 gm In 50 / 50 50 / 50 50 / 50 Dextrose 5% in Water 50 ml @ 100 mls/hr IV Q6H [facility] Rx#:[id number] Oral 480 / 480 350 / 350 Other: Meal Breakfast Percent of Meal Consumed 100% Feeding Ability Independent Weight 173 lb Medical - DS: Data Labs on day of discharge: Labs from last 24 hours 12/30/16 12/30/16 03:35 03:35 WBC 12.8 H RBC 2.90 L Hgb 10.9 L Hct 31.4 L MCV 108.1 H MCH 37.6 H MCHC 34.8 RDW 13.2 Plt Count 388 MPV 8.4 Total Counted 100 Seg Neutrophils % 60 Band Neutrophils % 3 Lymphocytes % 25 Monocytes % (Manual) 9 Eosinophils % (Manual) 2 Reactive Lymphocytes 1 Platelet Estimate Normal RBC Morphology Abnormal Macrocytosis 2+ A Ovalocytes Few A RBC Fragments Few A Sodium 140 Potassium 3.8 Chloride 103 Carbon Dioxide 24 Anion Gap 13.0 BUN 10 Creatinine 0.8 GFR Calculation 69 Glucose 97 Uric Acid 2.3 L Calcium 8.9 Phosphorus 3.3 Magnesium 2.0 Total Bilirubin 0.4 Direct Bilirubin < 0.2 GGT 13 AST 12 ALT 14 Alkaline Phosphatase 54 Lactate Dehydrogenase 156 Total Protein 6.5 Albumin 3.1 L Globulin 3.4 Albumin/Globulin Ratio 0.9 L Triglycerides 60 Medical - DS: A/P - Patient/Caregiver Discharge Instructions Diet: Low Sodium (2gm) Additional Instructions: Follow-up PCP in 5 days I recommend primary care physician to check CBC BMP UA as a posthospital follow- up and Chest x-ray in 1 week to assess interval resolution. antibiotics for 5 days Continue aggressive bowel regimen to prevent constipation Continue fall precautions All meals on chair sitting upright at 90 degrees to prevent aspiration Return to ER if worsening fever chills shortness of breath, diarrhea, bleeding Review risk and side effect profile of medications including antibiotics. Side effect may include mild to severe reaction including rash, diarrhea, cdiff and even which can be prevented by close follow-up with PCP and monitoring for side effects Continue diet and activity as advised Discussed importance of medication adherence Please review medication list with patient prior to discharge Please schedule follow-up with PCP/Providers prior to discharge and provide printouts Portions of this chart may have been created with [employer] voice recognition software. Occasional wrong-word or ?sound-like? substitutions may have occurred due to the inherent limitations of voice recognition software. Please read the chart carefully and recognize, using context, where the substitutions have occurred. CC- PCP Prescriptions: Amoxicillin/Potassium Clav [Augmentin] 875 mg PO Q12H #10 tablet Levofloxacin [Levaquin] 750 mg PO DAILY #5 tablet - Follow up Plan Follow up with: Beverley Stauffer ARNP [Primary Care Provider] - 01/03/17 8:45 am Disposition: Home, Self-Care Prognosis: Good Rehab Potential: Fair I certify that the patient requires SNF services: No Overall status at discharge: patient is progressing back to baseline Medical - DS: Qual - VTE Deep Vein Thrombosis/Pulmonary Embolism Present on Admission: No
[2016-12-30] MEDS: FEXOFENADINE 180 MG TABLET PO SCH (09:56)
[2016-12-30] MEDS: LISINOPRIL 20 MG TABLET PO SCH (09:57)
[2016-12-30] MEDS: amLODIPine 10 MG TABLET PO SCH (09:57)
[2016-12-30] MEDS: ALBUTEROL SULFATE 1 PUFF INHALER IH SCH (09:57)
[2016-12-30] MEDS: BECLOMETHASONE DIPROPIONATE 80MCG INHALER INH SCH (09:58)
== END 2016-12-30 13:25 | disposition home or self-care (01) | DRG 871 ==
LOC: ED-MC 12:02 → ICU 15:10
PROVIDERS: ADMIT Internal Medicine; ATTEND Internal Medicine

== ENCOUNTER 2023-07-21 15:04 | Inpatient (IN) ==
[2023-07-21] MEDS ORDERED: 0.9 % SODIUM CHLORIDE 500 ML IV ONE (15:35)
[2023-07-21 15:52] LABS: POC Calcium, Ionized 1.13 (1.16-1.32); POC Potassium 3.7 (3.3-5.1)
[2023-07-21 16:10] LABS: Basophils # (Auto) 0.07 K/mcL (0.00-0.30); Basophils % (Auto) 0.5 % (0.0-2.0); Eosinophils % (Auto) 1.3 % (0.0-7.0); Hematocrit 31.7 % (34.1-44.9); Hemoglobin 10.7 g/dL (11.2-15.7); Lymphocytes # (Auto) 1.38 K/mcL (1.50-4.80); Lymphocytes % (Auto) 8.9 % (15.5-49.0); Mean Cell Volume 101.3 fL (80.0-100.0); Mean Corpuscular HGB Conc 33.8 g/dL (31.0-36.0); Mean Platelet Volume 9.9 fL (8.8-12.5); Monocytes # (Auto) 1.13 K/mcL (0.10-0.90); Monocytes % (Auto) 7.3 % (1.0-12.0); Neutrophils % (Auto) 81.2 % (38.0-78.0); Platelet Count 331 K/mcL (140-440); RBC 3.13 M/mcL (3.59-5.38); Red Cell Distribution Width 18.8 % (11.5-14.5); WBC 15.4 K/mcL (4.5-11.0)
[2023-07-21] MEDS ORDERED: cefTRIAXone 2 GM in DEXTROSE 5% IN WATER 50 ML IV ONE (16:33)
[2023-07-21 16:52] LABS: INR 1.1 (0.9-1.1); Prothrombin Time 14.8 sec (11.9-14.5)
[2023-07-21] MEDS ORDERED: HYDROmorphone 0.5 MG/0.5 ML SYRINGE IV ONE (17:24)
[2023-07-21] MEDS ORDERED: morphine 4 MG/ML VIAL IV PRN (18:24)
[2023-07-21] MEDS ORDERED: IPRATROPIUM/ALBUTEROL 3 ML AMPUL.NEB NEB PRN ×2 (18:24→21:14)
[2023-07-21] MEDS ORDERED: ONDANSETRON 4 MG/2 ML VIAL IV PRN ×2 (18:24→21:14)
[2023-07-21] MEDS ORDERED: SENNOSIDES 1 TABLET PO PRN (18:24)
[2023-07-21] MEDS ORDERED: POTASSIUM CHLORIDE 20 MEQ TABLET PO PRN ×2 (18:24)
[2023-07-21] MEDS ORDERED: MAGNESIUM SULFATE 2 GM/50 ML BAG IV PRN (18:24)
[2023-07-21] MEDS ORDERED: POTASSIUM CHLORIDE 40 MEQ in DEXTROSE 5% IN WATER 500 ML IV PRN (18:24)
[2023-07-21] MEDS ORDERED: LIDOCAINE 2% PF 5 ML VIAL ONE (19:41)
[2023-07-21] MEDS ORDERED: TRANEXAMIC ACID 1,000 MG/10 ML VIAL ONE ×2 (19:41→21:29)
[2023-07-21] MEDS ORDERED: ONDANSETRON 4 MG/2 ML VIAL ONE (19:41)
[2023-07-21] MEDS ORDERED: KETAMINE 50 MG/ML Syringe IV ONE (19:41)
[2023-07-21] MEDS ORDERED: PROPOFOL 200 MG/20 ML VIAL IV ONE (19:41)
[2023-07-21] MEDS ORDERED: DEXAMETHASONE 10 MG/ML VIAL ONE (19:41)
[2023-07-21] MEDS ORDERED: MAGNESIUM SULFATE 2 GM/50 ML BAG IV ONE (19:41)
[2023-07-21 19:46] LABS: Anisocytosis 2+ (None Seen); Band Neutrophils % 3 % (0-10); Basophils % (Manual) 1 % (0-2); Eosinophils % (Manual) 5 % (0-7); Lymphocytes % 5 % (15-49); Macrocytosis 1+ (None Seen); Monocytes % (Manual) 5 % (1-12); Platelet Estimate NORMAL (Normal); RBC Morphology NORMAL (Normal); Reactive Lymphocytes 1 % (0-2); Segmented Neutrophils % 80 % (38-78)
[2023-07-21] MEDS ORDERED: ceFAZolin 1 GM VIAL IP ONE (19:54)
[2023-07-21] MEDS ORDERED: ceFAZolin 1 GM VIAL ONE (19:56)
[2023-07-21 19:58] LABS: Appearance,Urine CLEAR (Clear); Bilirubin,Urine Negative (Negative); Color,Urine YELLOW; Culture Indicated,Urine No; Glucose,Urine (UA) Negative (Negative); Ketones,Urine 5 mg/dL (Negative); Leukocyte Esterase,Urine Negative /uL (Negative); Nitrate,Urine Negative (Negative); Protein,Urine Negative (Negative); Specific Gravity,Urine 1.013 (1.000-1.035); Urine Blood Negative (Negative); Urobilinogen,Urine Negative
[2023-07-21] MEDS ORDERED: PHENYLephrine 1 MG/10 ML SYRINGE (ANEST) ONE (20:27)
[2023-07-21] MEDS ORDERED: fentaNYL 100 MCG/2 ML VIAL IV ONE (20:43)
[2023-07-21] MEDS ORDERED: TRANEXAMIC ACID 1,000 MG/10 ML VIAL IV ONE (21:07)
[2023-07-21] MEDS ORDERED: BISACODYL 10 MG SUPP.RECT PR PRN (21:07)
[2023-07-21] MEDS ORDERED: FLEETS ADULT ENEMA PR PRN (21:07)
[2023-07-21] MEDS ORDERED: MAGNESIUM HYDROXIDE 30 ML ORAL.SUSP PO PRN (21:07)
[2023-07-21] MEDS ORDERED: BENZOCAINE/MENTHOL 1 LOZENGE PO PRN (21:07)
[2023-07-21] MEDS ORDERED: ePHEDrine 50 MG/5 ML SYRINGE (ANEST) IV ONE (21:08)
[2023-07-21] MEDS ORDERED: LACTATED RINGERS 250 ML IV PRN (21:14)
[2023-07-21] MEDS ORDERED: MEPERIDINE 25 MG/ML VIAL IV PRN (21:14)
[2023-07-21] MEDS ORDERED: PROMETHAZINE 25 MG/ML VIAL IV PRN (21:14)
[2023-07-21] MEDS ORDERED: ACETAMINOPHEN 1,000 MG/100 ML BAG IV ONE ×2 (21:14→21:23)
[2023-07-21] MEDS ORDERED: fentaNYL 100 MCG/2 ML VIAL IV PRN (21:14)
[2023-07-21] MEDS ORDERED: NALOXONE HCL 0.4 MG/ML VIAL IV PRN (21:14)
[2023-07-21] MEDS ORDERED: diphenhydrAMINE 50 MG/ML VIAL IV PRN (21:14)
[2023-07-21] MEDS ORDERED: LACTATED RINGERS 1,000 ML IV SCH (21:15)
[2023-07-21] MEDS ORDERED: ceFAZolin 2 GM in DEXTROSE 5% IN WATER 50 ML IV SCH (21:15)
[2023-07-21] MEDS: DOCUSATE SODIUM 100 MG CAPSULE PO SCH (22:24)
[2023-07-21] MEDS: 0.9 % SODIUM CHLORIDE 1,000 ML IV SCH (22:29)
[2023-07-21] MEDS: 0.9 % SODIUM CHLORIDE 10 ML SYRINGE IV SCH (22:30)
[2023-07-22] MEDS: ceFAZolin 1 GM VIAL IV SCH ×2 (03:59→11:17)
[2023-07-22] MEDS ORDERED: ACETAMINOPHEN 325 MG TABLET PO PRN (04:00)
[2023-07-22] MEDS: 0.9 % SODIUM CHLORIDE 10 ML SYRINGE IV SCH ×3 (04:27→20:02)
[2023-07-22 06:58] LABS: Basophils # (Auto) 0.03 K/mcL (0.00-0.30); Basophils % (Auto) 0.2 % (0.0-2.0); Eosinophils # (Auto) 0 K/mcL (0.00-0.70); Eosinophils % (Auto) 0 % (0.0-7.0); Hematocrit 28.6 % (34.1-44.9); Hemoglobin 9.6 g/dL (11.2-15.7); Lymphocytes # (Auto) 0.51 K/mcL (1.50-4.80); Lymphocytes % (Auto) 3.2 % (15.5-49.0); Mean Cell Volume 102.1 fL (80.0-100.0); Mean Corpuscular HGB Conc 33.6 g/dL (31.0-36.0); Mean Platelet Volume 11.1 fL (8.8-12.5); Monocytes # (Auto) 0.36 K/mcL (0.10-0.90); Monocytes % (Auto) 2.3 % (1.0-12.0); Neutrophils % (Auto) 93.9 % (38.0-78.0); Platelet Count 349 K/mcL (140-440); Red Cell Distribution Width 18.9 % (11.5-14.5); WBC 15.8 K/mcL (4.5-11.0)
[2023-07-22 07:33] LABS: ALT/SGPT 14 U/L (<40); AST/SGOT 19 U/L (<32); Albumin 3.8 gm/dL (3.2-5.2); Albumin/Globulin Ratio 1.5 (1.0-2.3); Alkaline Phosphatase 54 U/L (39-117); Bilirubin,Direct 0.3 mg/dL (<0.3); Bilirubin,Total 0.9 mg/dL (0.1-1.0); Blood Urea Nitrogen 27 mg/dL (8-23); Calcium 8.7 mg/dL (8.6-10.4); Carbon Dioxide 26 mmol/L (22-30); Chloride 100 mmol/L (96-108); Globulin 2.5 gm/dL (2.2-3.7); Glomerular Filtration Rate 66; Glucose 188 mg/dL (70-105); Lactate Dehydrogenase 213 U/L (135-225); Phosphorous 4.1 mg/dL (2.5-4.5); Triglycerides 40 mg/dL (<150); Uric Acid 5.2 mg/dL (2.5-8.0)
[2023-07-22] MEDS: HYDROcodone/APAP 5/325MG TABLET PO PRN ×3 (07:39→20:06)
[2023-07-22] MEDS ORDERED: NITROGLYCERIN 0.4 MG TAB.SUBL SL PRN (08:00)
[2023-07-22] MEDS: ENOXAPARIN 40 MG/0.4 ML SYRINGE SQ SCH (08:11)
[2023-07-22] MEDS: FEXOFENADINE 180 MG TABLET PO SCH (08:11)
[2023-07-22] MEDS: DOCUSATE SODIUM 100 MG CAPSULE PO SCH ×2 (08:11→20:06)
[2023-07-22] MEDS: CARVEDILOL 6.25 MG TABLET PO SCH ×2 (08:11→16:33)
[2023-07-22] MEDS: 0.9 % SODIUM CHLORIDE 1,000 ML IV SCH ×2 (08:12→11:17)
[2023-07-22] MEDS: FLUTICASONE HFA 110MCG INHALER INH SCH (20:06)
[2023-07-23] MEDS: HYDROcodone/APAP 5/325MG TABLET PO PRN ×4 (02:09→17:20)
[2023-07-23] MEDS: 0.9 % SODIUM CHLORIDE 10 ML SYRINGE IV SCH ×3 (05:02→20:40)
[2023-07-23 07:18] LABS: Basophils # (Auto) 0.01 K/mcL (0.00-0.30); Basophils % (Auto) 0.1 % (0.0-2.0); Eosinophils # (Auto) 0.04 K/mcL (0.00-0.70); Eosinophils % (Auto) 0.3 % (0.0-7.0); Hematocrit 22.4 % (34.1-44.9); Hemoglobin 7.5 g/dL (11.2-15.7); Lymphocytes # (Auto) 1.46 K/mcL (1.50-4.80); Lymphocytes % (Auto) 11.9 % (15.5-49.0); Mean Cell Volume 102.8 fL (80.0-100.0); Mean Corpuscular HGB Conc 33.5 g/dL (31.0-36.0); Mean Platelet Volume 10.5 fL (8.8-12.5); Monocytes % (Auto) 12.2 % (1.0-12.0); Neutrophils % (Auto) 75.2 % (38.0-78.0); Platelet Count 287 K/mcL (140-440); RBC 2.18 M/mcL (3.59-5.38); Red Cell Distribution Width 19.2 % (11.5-14.5); WBC 12.3 K/mcL (4.5-11.0)
[2023-07-23] MEDS: POLYETHYLENE GLYCOL 3350 17 GM PACKET PO PRN (08:24)
[2023-07-23] MEDS: CARVEDILOL 6.25 MG TABLET PO SCH ×2 (08:24→17:20)
[2023-07-23] MEDS: DOCUSATE SODIUM 100 MG CAPSULE PO SCH ×2 (08:50→20:40)
[2023-07-23] MEDS: FEXOFENADINE 180 MG TABLET PO SCH (08:50)
[2023-07-23] MEDS: ENOXAPARIN 40 MG/0.4 ML SYRINGE SQ SCH (08:50)
[2023-07-23] MEDS: FLUTICASONE HFA 110MCG INHALER INH SCH ×2 (08:51→20:41)
[2023-07-23] MEDS ORDERED: 0.9 % SODIUM CHLORIDE 250 ML IV SCH (11:15)
[2023-07-24] MEDS: HYDROcodone/APAP 5/325MG TABLET PO PRN ×3 (01:03→14:32)
[2023-07-24] MEDS: 0.9 % SODIUM CHLORIDE 10 ML SYRINGE IV SCH ×3 (05:42→20:09)
[2023-07-24] MEDS: DOCUSATE SODIUM 100 MG CAPSULE PO SCH ×2 (08:42→20:09)
[2023-07-24] MEDS: ENOXAPARIN 40 MG/0.4 ML SYRINGE SQ SCH (08:42)
[2023-07-24] MEDS: CARVEDILOL 6.25 MG TABLET PO SCH ×2 (08:42→17:12)
[2023-07-24] MEDS: FLUTICASONE HFA 110MCG INHALER INH SCH ×2 (08:42→20:08)
[2023-07-24] MEDS: POLYETHYLENE GLYCOL 3350 17 GM PACKET PO PRN (08:42)
[2023-07-24] MEDS: FEXOFENADINE 180 MG TABLET PO SCH (08:42)
[2023-07-24 09:48] LABS: Basophils # (Auto) 0.07 K/mcL (0.00-0.30); Basophils % (Auto) 0.5 % (0.0-2.0); Eosinophils # (Auto) 0.36 K/mcL (0.00-0.70); Eosinophils % (Auto) 2.5 % (0.0-7.0); Hemoglobin 9.2 g/dL (11.2-15.7); Lymphocytes # (Auto) 1.62 K/mcL (1.50-4.80); Lymphocytes % (Auto) 11.3 % (15.5-49.0); Mean Cell Volume 101.1 fL (80.0-100.0); Mean Corpuscular HGB Conc 34.1 g/dL (31.0-36.0); Mean Platelet Volume 10.3 fL (8.8-12.5); Monocytes # (Auto) 1.58 K/mcL (0.10-0.90); Monocytes % (Auto) 11.1 % (1.0-12.0); Platelet Count 316 K/mcL (140-440); RBC 2.67 M/mcL (3.59-5.38); WBC 14.3 K/mcL (4.5-11.0)
[2023-07-24 10:08] LABS: ALT/SGPT 15 U/L (<40); AST/SGOT 21 U/L (<32); Albumin 3.5 gm/dL (3.2-5.2); Albumin/Globulin Ratio 1.4 (1.0-2.3); Alkaline Phosphatase 54 U/L (39-117); Blood Urea Nitrogen 15 mg/dL (8-23); Calcium 8.5 mg/dL (8.6-10.4); Carbon Dioxide 24 mmol/L (22-30); Chloride 93 mmol/L (96-108); Globulin 2.5 gm/dL (2.2-3.7); Glomerular Filtration Rate 77; Glucose 199 mg/dL (70-105)
[2023-07-24] MEDS: SODIUM CHLORIDE 1 GM TABLET PO SCH ×3 (12:49→20:09)
[2023-07-24] MEDS ORDERED: HYDROcodone/APAP 5/325MG TABLET PO SCH (21:00)
[2023-07-25] MEDS: HYDROcodone/APAP 5/325MG TABLET PO PRN ×2 (04:14→07:44)
[2023-07-25] MEDS: 0.9 % SODIUM CHLORIDE 10 ML SYRINGE IV SCH (04:14)
[2023-07-25] MEDS: CARVEDILOL 6.25 MG TABLET PO SCH (07:22)
[2023-07-25] MEDS ORDERED: PANTOPRAZOLE 40 MG PACKET PO SCH (07:30)
[2023-07-25] MEDS: FEXOFENADINE 180 MG TABLET PO SCH (08:49)
[2023-07-25] MEDS: SODIUM CHLORIDE 1 GM TABLET PO SCH (08:49)
[2023-07-25] MEDS: DOCUSATE SODIUM 100 MG CAPSULE PO SCH (08:50)
[2023-07-25] MEDS: ENOXAPARIN 40 MG/0.4 ML SYRINGE SQ SCH (08:50)
[2023-07-25] MEDS: FLUTICASONE HFA 110MCG INHALER INH SCH (08:55)
[2023-07-25 10:15] LABS: Basophils # (Auto) 0.07 K/mcL (0.00-0.30); Basophils % (Auto) 0.6 % (0.0-2.0); Eosinophils # (Auto) 0.35 K/mcL (0.00-0.70); Eosinophils % (Auto) 3.2 % (0.0-7.0); Hematocrit 27.7 % (34.1-44.9); Hemoglobin 9.3 g/dL (11.2-15.7); Lymphocytes # (Auto) 1.37 K/mcL (1.50-4.80); Lymphocytes % (Auto) 12.5 % (15.5-49.0); Mean Cell Volume 101.1 fL (80.0-100.0); Mean Corpuscular HGB Conc 33.6 g/dL (31.0-36.0); Mean Platelet Volume 10.3 fL (8.8-12.5); Monocytes % (Auto) 8.2 % (1.0-12.0); Neutrophils % (Auto) 74.6 % (38.0-78.0); Platelet Count 304 K/mcL (140-440); RBC 2.74 M/mcL (3.59-5.38); Red Cell Distribution Width 19.6 % (11.5-14.5); WBC 10.9 K/mcL (4.5-11.0)
[2023-07-25 10:34] LABS: ALT/SGPT 20 U/L (<40); AST/SGOT 22 U/L (<32); Albumin 3.6 gm/dL (3.2-5.2); Albumin/Globulin Ratio 1.5 (1.0-2.3); Alkaline Phosphatase 58 U/L (39-117); Bilirubin,Total 0.9 mg/dL (0.1-1.0); Blood Urea Nitrogen 13 mg/dL (8-23); Calcium 8.5 mg/dL (8.6-10.4); Carbon Dioxide 25 mmol/L (22-30); Chloride 97 mmol/L (96-108); Globulin 2.4 gm/dL (2.2-3.7); Glomerular Filtration Rate 77; Glucose 236 mg/dL (70-105)
== END 2023-07-25 11:06 | DRG 522 ==
LOC: ED 15:04 → MEDSUR 18:22
PROVIDERS: ADMIT Orthopaedic Surgery; ATTEND Internal Medicine